=== PATIENT | male | born 1955 | race Caucasian/White ===

== ENCOUNTER 2017-02-12 14:13 | Emergency (ER) | payer OTHER ==
[~2017-02-12] VITALS: Ht 172.7 cm; Wt 93.5 kg
[~2017-02-12 14:13] MED LIST: ABILIFY5 MG PO; ADULT LOW DOSE81 M1 PO; ADVAIR HFA120 INHALA IH; AEROECLIPSE1 EACH MC; ASPIR 8181 M1 PO; ASPIR-LOW81 MG PO; ATORVASTATIN CA40 MG PO; AZITHROMYCIN500 M1 PO; BISACODYL5 MG PO; CYMBALTA60 MG PO; DULOXETINE HCL60 MG PO; DUONEB 2.5-0.5 M3 ML IH; DURAGESIC100 MCG TD; DURAGESIC25 MCG TD; DURAGESIC75 MCG TD; FENTANYL1 EAC2 TD; FENTANYL1 EAC3 TD; FOLIC ACID1 MG PO; GLYBURIDE2.5 MG PO; HYDROCHLOROTHIA25 MG PO; LEVAQUIN750 MG PO; LIPITOR10 MG PO; LIPITOR40 MG PO; LISINOPRIL2.5 MG PO; LISINOPRIL5 MG PO; LOVENOX40 MG/0.4 SC; LYRICA150 MG PO; LYRICA200 MG PO; MELATONIN3 MG PO; METHADONE HCL40 MG PO; MILK OF MAGNESI10 ML PO; MIRTAZAPINE30 MG PO; NEURONTIN100 MG PO; NICOTINE PATCH1 EAC2 TD; PREDNISONE10 MG PO; PREDNISONE20 MG PO; PRINIVIL5 MG PO; PROAIR HFA8.5 GM IH; PROVENTIL,2.5 MG/3 M IH; REMERON30 M2 PO; SPIRIVA1 INHALATI IH; SYMBICORT60 INHALAT IH; THERAGRAN1 TABLET PO; TYLENOL REGULA325 MG PO; VISTARIL50 MG PO; VITAMIN B-1100 MG PO; ZETIA10 MG PO
[2017-02-12 15:00] LABS: HEMATOCRIT 39.3 % (38.0-50.0); HEMOGLOBIN 13.2 G/DL (12.5-16.6); MCH 32.3 PG (29.0-34.0); MCHC 33.6 G/DL (30.0-36.0); MCV 96.1 FL (86-99); PLATELET COUNT 172 K/uL (156-360); RBC DIS.WIDTH-CV 12.5 % (11.8-14.6); RBC DIS.WIDTH-SD 44.6 % (39-53); RED BLOOD COUNT 4.09 M/uL (4.00-5.50); WHITE BLOOD COUNT 9.1 K/uL (4.1-10.2)
[2017-02-12 15:08] LABS: CHLORIDE 106 mEq/L (99-109); SODIUM 138 mEq/L (136-147)
[2017-02-12 15:10] LABS: GLUCOSE 116 mg/dL (70-99)
[2017-02-12 15:14] LABS: CREATININE 0.9 mg/dL (0.6-1.3); GFR ESTIMATE (CALCULATED) > 59 mL/min/ (58.99-99999)
[2017-02-12 15:15] LABS: UREA NITROGEN (BUN) 8 mg/dL (9-23)
[2017-02-12 15:22] LABS: TROP-I INTERPRETATION NEGATIVE; TROPONIN-I < 0.01 ng/mL (0.0-0.30)
[2017-02-12] MEDS ORDERED: PREDNISONE50 MG PO (16:20)
[2017-02-12] MEDS ORDERED: DOXYCYCLINE MO100 MG PO (16:20)
[2017-02-12 16:47] VITALS: BP 119/69
== END 2017-02-12 16:47 | disposition home or self-care (01) ==
LOC: EME 14:13
PROVIDERS: Physician Assistant
DX: J44.1 Chronic obstructive pulmonary disease with (acute) exacerbation (principal); J20.9 Acute bronchitis, unspecified; J44.0 Chronic obstructive pulmonary disease with (acute) lower respiratory infection; F17.210 Nicotine dependence, cigarettes, uncomplicated; Z99.81 Dependence on supplemental oxygen; F41.9 Anxiety disorder, unspecified
CPT/HCPCS: 71045; 80048; 84484; 85027; 93005; 94640; 94640 76; J1100; J7644

== ENCOUNTER → 2017-03-12 | Outpatient (CLI) | payer OTHER ==
[~2017-03-12] MED LIST changes: +DOXYCYCLINE MO100 MG PO; +PREDNISONE50 MG PO
[2017-03-12 16:38] LABS: CSF PROTEIN 56 mg/dL (15-45)
[2017-03-12 16:39] LABS: APPEARANCE CLEAR/COLORLESS; CSF TUBE NUMBER TUBE #4
[2017-03-12 16:44] LABS: GLUCOSE, CSF 86 mg/dL (40-80)
[2017-03-12 16:46] LABS: RED CELL COUNT 9 /MM^3 (0-1)
[2017-03-12 16:47] LABS: WHITE CELL COUNT 2 /MM^3 (0-5)
[2017-03-12 16:49] LABS: CSF EOSINOPHILS ND % (0-25); MONONUCLEAR WBC'S ND % (50-90); POLYNUCLEAR WBC'S ND % (0-3)
== END | disposition home or self-care (01) ==
LOC: RAD 14:59
PROVIDERS: Radiology Diagnostic Radiology
PROC: 009U3ZZ Drainage of Spinal Canal, Percutaneous Approach (ICD-10-PCS; principal; 2017-03-12)
DX: R51 Headache (principal); M21.379 Foot drop, unspecified foot
CPT/HCPCS: 62270; 77003; 82945; 84157; 87070; 87205; 89051

== ENCOUNTER 2017-03-24 20:16 | Emergency (ER) | payer OTHER ==
[~2017-03-24] VITALS: Ht 172.7 cm; Wt 88.8 kg
[2017-03-24 22:15] VITALS: BP 152/83
== END 2017-03-24 22:29 | disposition home or self-care (01) ==
LOC: EME → EDBD 20:16 → EME 20:16
DX: F10.129 Alcohol abuse with intoxication, unspecified (principal); S00.211A Abrasion of right eyelid and periocular area, initial encounter; W01.198A Fall on same level from slipping, tripping and stumbling with subsequent striking against other object, initial encounter; Y92.480 Sidewalk as the place of occurrence of the external cause; Y90.9 Presence of alcohol in blood, level not specified; F41.9 Anxiety disorder, unspecified; F17.200 Nicotine dependence, unspecified, uncomplicated
CPT/HCPCS: 70450; 99281; 99283

== ENCOUNTER 2017-09-06 12:40 | Emergency (ER) | payer OTHER ==
[~2017-09-06] VITALS: Ht 172.7 cm; Wt 81.8 kg
[2017-09-06] MEDS ORDERED: PROAIR HFA8.5 GM IH (13:03)
[2017-09-06] MEDS ORDERED: VENTOLIN HFA18 GM IH (13:03)
[2017-09-06] MEDS ORDERED: KLONOPIN2 MG PO (13:04)
[2017-09-06] MEDS ORDERED: METFORMIN HCL500 MG PO (13:04)
[2017-09-06] MEDS ORDERED: AMBIEN CR12.5 MG PO (13:04)
[2017-09-06] MEDS ORDERED: ARICEPT10 MG PO (13:05)
[2017-09-06] MEDS ORDERED: LISINOPRIL10 MG PO (13:05)
[2017-09-06] MEDS ORDERED: VERAPAMIL HCL120 M1 PO (13:06)
[2017-09-06 13:26] LABS: APPEARANCE SL.HAZY ((CLEAR)); BILIRUBIN NEGATIVE; BLOOD MODERATE; COLOR YELLOW ((YELLOW)); GLUCOSE (STRIP) NEGATIVE; KETONES NEGATIVE; LEUKOCYTES SMALL; NITRITE NEGATIVE; PROTEIN (STRIP) 100; SPECIFIC GRAVITY 1.017 (1.000-1.030)
[2017-09-06 13:50] LABS: BACTERIA 1+ /HPF; EPITHELIAL CELLS RARE /HPF; MUCUS TRACE /LPF; RED BLOOD CELLS 40-50 /HPF (0-5); UCUL ADDED? YES; WHITE BLOOD CELLS TNTC /HPF (0-5)
[2017-09-06 13:54] LABS: HEMATOCRIT 40.4 % (38.0-50.0); HEMOGLOBIN 14.2 G/DL (12.5-16.6); MCH 32.3 PG (29.0-34.0); MCHC 35.1 G/DL (30.0-36.0); PLATELET COUNT 190 K/uL (156-360); RBC DIS.WIDTH-CV 12.3 % (11.8-14.6); RBC DIS.WIDTH-SD 41.9 % (39-53); RED BLOOD COUNT 4.39 M/uL (4.00-5.50); WHITE BLOOD COUNT 11.4 K/uL (4.1-10.2)
[2017-09-06 14:02] LABS: CHLORIDE 106 mEq/L (99-109); POTASSIUM 4.1 mEq/L (3.7-5.4); SODIUM 141 mEq/L (136-147)
[2017-09-06 14:04] LABS: GLUCOSE 105 mg/dL (70-99)
[2017-09-06 14:08] LABS: CREATININE 0.7 mg/dL (0.6-1.3); GFR ESTIMATE (CALCULATED) > 59 mL/min/ (58.99-99999); UREA NITROGEN (BUN) 5 mg/dL (9-23)
[2017-09-06] MEDS ORDERED: BACTRIM,SEPT1 TABLET PO (14:14)
[2017-09-06 14:50] VITALS: BP 141/86
== END 2017-09-06 14:50 | disposition home or self-care (01) ==
LOC: EME 12:40
PROVIDERS: Nurse Practitioner Family
DX: N39.0 Urinary tract infection, site not specified (principal); R19.7 Diarrhea, unspecified; J44.9 Chronic obstructive pulmonary disease, unspecified; I10 Essential (primary) hypertension; E11.9 Type 2 diabetes mellitus without complications; Z79.84 Long term (current) use of oral hypoglycemic drugs; Z79.82 Long term (current) use of aspirin; Z87.440 Personal history of urinary (tract) infections; F17.200 Nicotine dependence, unspecified, uncomplicated
CPT/HCPCS: 80048; 81003; 85027; 87077; 87086 GA; 87186; 99281; 99284